=== PATIENT | male | born 1960 | race Two or more races ===

== ENCOUNTER 2025-03-20 08:45 | Day surgery (SDC) | payer MEDICAID, SELFPAY ==
--- NOTE | 2025-03-16 06:41 | EKG_ITS ---
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
[2025-03-16 11:17] VITALS: BMI 24.2
[2025-03-16 11:21] VITALS: BMI 24.2
[2025-03-16 11:46] LABS: Collection Type, Urine Clean Catch; Squamous Epithelial Cell,Urine 0 /hpf (0-5)
[2025-03-16 13:38] LABS: Basophils # (Auto) 0.0 Thou/mm3 (0.0-0.2); Basophils % (Auto) 0 % (0-2.5); Eosinophils # (Auto) 0.1 Thou/mm3 (0.0-0.5); Eosinophils % (Auto) 1 % (0-10); Hematocrit 43.9 % (41.0-53.0); Hemoglobin 15.0 g/dL (13.5-16.0); Immature Granulocytes Auto 0.02 Thou/mm3 (0.00-0.00); Lymphocytes # (Auto) 1.7 Thou/mm3 (1.0-4.8); Lymphocytes % (Auto) 25 % (10-50); Mean Corpuscular HGB Conc 34.2 g/dl (31.0-37.0); Mean Corpuscular Hemoglobin 29.4 pg (25.0-35.0); Mean Corpuscular Volume 86 fL (80-100); Monocytes # (Auto) 0.4 Thou/mm3 (0.0-0.8); Monocytes % (Auto) 6 % (0-12); Neutrophils # (Auto) 4.5 Thou/mm3 (1.8-7.7); Neutrophils % (Auto) 67 % (37-80); Nucleated Red Blood Cell # 0.00 Thou/mm3 (0.00-0.00); Nucleated Red Blood Cell % 0 /100 WBC (0); Platelet Count 279 Thou/mm3 (140-440); RDW Standard Deviation 42.9 fL (35.1-43.9); Red Blood Count 5.11 Miln/mm3 (4.50-5.90); White Blood Count 6.8 Thou/mm3 (3.8-10.6)
[2025-03-16 13:39] LABS: Bilirubin,Urine Negative (Negative); Blood,Urine Negative (Negative); Clarity,Urine Clear (Clear/Hazy); Color,Urine Lt-Yellow (Lt Yel-Yel); Glucose, Urine Negative (Negative); Ketones,Urine Negative (Negative); Leukocyte Esterase,Urine Negative (Negative); Nitrite,Urine Negative (Negative); PH,Urine 8.0 (5.0-7.0); Protein,Urine Negative (Neg - Trace); RBC,Urine < 1 /hpf (0-3); Specific Gravity,Urine 1.008 (1.001-1.035); Urobilinogen,Urine Negative mg/dL (0.0-1.0); WBC,Urine < 1 /hpf (0-5)
[2025-03-16 13:49] LABS: Alanine Aminotransferase 16 U/L (10-49); Albumin, Serum 4.5 gm/dL (3.4-4.8); Albumin/Globulin Ratio 1.8 (1.2-2.2); Alkaline Phosphatase 89 U/L (46-116); Anion Gap 9 (7-16); Aspartate Amino Transferase 20 U/L (0-34); BUN/Creatinine Ratio 13 Ratio (12-20); Bilirubin,Total 0.3 mg/dL (0.3-1.2); Blood Urea Nitrogen 12 mg/dL (9-23); Calcium 9.4 mg/dL (8.3-10.6); Calcium (Corrected) 9.4 mg/dL (8.5-10.1); Carbon Dioxide 31.5 mMol/L (20.0-31.0); Chloride 103 mMol/L (98-107); Creatinine (Component) 0.9 mg/dL (0.6-1.3); Estimated Creatinine Clearance 70.3 mL/min (>60); Globulin 2.5 gm/dL (2.3-3.5); Glucose 94 mg/dL (74-106); Osmolality,Calculated 284 (275-295); Potassium 4.4 mMol/L (3.4-5.1); Sodium 143 mMol/L (136-145); Total Protein 7.0 gm/dL (5.7-8.2); eGFR > 60 See Note
--- NOTE | 2025-03-19 11:49 | ESHP_ITS ---
RE: JEAN PIERRE COOPER : 1960 DATE OF ADMISSION: 03/19/2025 HISTORY OF PRESENT ILLNESS: Patient is a 64-year-old gentleman, [place]ian speaking with nocturia 1-2 times with a large left scrotal swelling. PAST SURGICAL HISTORY: Previous surgery included left inguinal hernia repair and right shoulder surgery. SOCIAL HISTORY: He has 4 children. ALLERGIES: NONE KNOWN. PAST MEDICAL HISTORY: No history of diabetes. No history of hypertension. MEDICATIONS: He takes: 1. Relafen once a day. 2. Tamsulosin once a day. PHYSICAL EXAMINATION: Clinical examination revealed: HEENT: Normal. NECK: Supple. LUNGS: Clear. CARDIOVASCULAR: Heart sounds are normal. ABDOMEN: Soft without any organomegaly. No guarding. No rigidity. EXTREMITIES: Normal. GENITOURINARY: Phallus is normal. Testes are down in scrotum. There is a large left scrotal hydrocele with 3-4 inches in size. RECTAL: Examination revealed moderately enlarged smooth prostate. IMPRESSION: Left scrotal hydrocele. PLAN: Left hydrocelectomy. Planned procedure, risks and complications have been discussed with the patient. Patient understood them and agreed to proceed. DT: 11:20:58 TT: 11:47:00 Ref: [id number] - TID: [id number]
[2025-03-20] VITALS (8 sets, daily range): BP systolic 126–148; BP diastolic 63–78; PULSE 65–97; RESP 12–20; TEMP 36.2–36.4; O2SAT 97–99; BMI 23.7
--- NOTE | 2025-03-20 09:44 | CHAP ---
Visited with patient giving encouragement and prayer before procedure.
--- NOTE | 2025-03-20 11:01 | SUR.PHASEI ---
1101: Pt. AAOx4, vitals stable, breathing unlabored, no complaint of pain or nausea, dressing to scrotum CDI, no active bleed noted, report received from Bonnie WEBB and MD Sumner.
[2025-03-20] MEDS: fentaNYL CIT INJ 50 mCg/ML AMP 2ML IVP (11:28)
--- NOTE | 2025-03-20 12:05 | SUR.PHASEII ---
1205: Pt. AAOx4, vitals stable, breathing unlabored, no complaint of pain or nausea, dressing to scrotum CDI, no active bleed noted, pt. tolerated sips of water well, pt. ambulated to wheelchair with steady gait and no assist, no complications. Gave discharge instructions to the pt. and his ride using a historic interpreter, both verbalized understanding and had no further questions. Pt. left with all personal belongings.
--- NOTE | 2025-03-20 17:17 | ESOP_ITS ---
RE: JEAN PIERRE COOPER : 1960 PREOPERATIVE DIAGNOSIS: Left scrotal hydrocele. POSTOPERATIVE DIAGNOSIS: Left scrotal hydrocele. PROCEDURE PERFORMED: Left hydrocelectomy with excision and fulguration of the appendix of the left testis. ANESTHESIA: General by Jeffery Sumner MD INDICATION: Patient is a 64-year-old gentleman with a large left scrotal hydrocele about 4 inches in size. He is now scheduled to have left hydrocelectomy. Planned procedure risks and complications have been discussed with the patient. Patient understood them and agreed to proceed. DESCRIPTION OF PROCEDURE: After the patient was brought to the operating table under adequate general anesthesia and supine position, parts were prepped and draped in the usual fashion. Left scrotal vertical incision was then made approximately 4 cm long. Skin and subcutaneous tissues were incised. Hemostasis was obtained. Tunica vaginalis sac was dissected from all around and was opened. It contained clear hydrocele fluid, approximately 200 mL. The left testis appeared normal except the appendix of the left testis which was prominent which was excised and fulgurated. Partial excision of the hydrocele sac was then done. Eversion of the sac was done behind the spermatic cord structures by placing interrupted sutures of 3-0 chromic catgut sutures. Complete hemostasis was obtained. Left testis was put back into the scrotal sac and the wound was closed in 2 layers. First for the tunica dartos with continuous sutures of 3-0 chromic catgut sutures and the skin was closed with a continuous sutures of 3-0 chromic catgut sutures. Local anesthetic was injected at the site of skin. Sterile dressing was then applied. Patient was then transferred to the recovery room in a satisfactory condition having tolerated the entire procedure well. Sponge count and needle count at the end of the procedure was found to be correct. Estimated blood loss was approximately 5 mL. DT: 11:17:39 TT: 17:15:00 Ref: [id number] - TID: [id number]
== END 2025-03-20 12:05 | disposition home or self-care (01) ==
PROVIDERS: Anesthesiology; PCP Nurse Practitioner Primary Care; Referring Provider Surgery; Visit Provider Surgery
PROC: (CPT 55040; principal; 2025-03-20 11:00)
DX: N43.3 Hydrocele, unspecified (principal); Q55.29 Other congenital malformations of testis and scrotum; Z01.810 Encounter for preprocedural cardiovascular examination
CPT/HCPCS: 55040; 36415; 80053; 81001; 85025; 93005; A4217; A4649; J0690; J1100; J2371; J2704; J3010; J3490; L8330; A9270